=== PATIENT | male | born 1945 | race Caucasian/White ===

== ENCOUNTER 2023-05-20 18:32 | Emergency (ER) | payer MEDICARE ==
[2023-05-20 19:31] VITALS: TEMP 97.5
[2023-05-20 20:10] LABS: Basophils % (A) 0 %; Eosinophils # (A) 0.2 k/uL (0-0.7); Eosinophils % (A) 1 %; HCT 46.2 % (39.0-53.0); HGB 15.3 gm/dL (13.0-17.5); Lymphocytes # (A) 0.8 k/uL (1.0-4.8); Lymphocytes % (A) 5 %; MCHC 33.1 g/dL (31.0-37.0); MCV 96.7 fL (80.0-100.0); Monocytes # (A) 0.8 k/uL (0-1.0); Monocytes % (A) 6 %; Neutrophils % (A) 87 %; Platelet Count 132 k/uL (150-450); RBC 4.78 m/uL (4.30-5.90); RDW 12.7 % (11.5-15.5); WBC 14.9 k/uL (3.8-10.6)
--- NOTE | 2023-05-20 20:33 | XR ---
EXAMINATION TYPE: XR chest 2V DATE OF EXAM: 05/20/2023 COMPARISON: NONE HISTORY: Syncope and weakness TECHNIQUE: Frontal and lateral views of the chest are obtained. FINDINGS: There is no focal air space opacity, pleural effusion, or pneumothorax seen. The cardiac silhouette size is upper limits of normal. Exaggerated thoracic kyphosis is seen. Overlying EKG leads are noted. IMPRESSION: No acute process.
[2023-05-20 20:38] LABS: ALT 20 U/L (4-49); AST 52 U/L (17-59); African American GFR (CKD) 56 (>60 ml/min/1.73 sqM); Albumin 4.9 g/dL (3.5-5.0); Alkaline Phosphatase 73 U/L (38-126); Anion Gap 15 mmol/L; Blood Urea Nitrogen 29 mg/dL (9-20); Calcium 9.4 mg/dL (8.4-10.2); Carbon Dioxide 18 mmol/L (22-30); Chloride 103 mmol/L (98-107); Glucose 108 mg/dL (74-99); Magnesium 2.1 mg/dL (1.6-2.3); Non-African American GFR(CKD) 48 (>60 ml/min/1.73 sqM); Sodium 136 mmol/L (137-145); Total Bilirubin 1.2 mg/dL (0.2-1.3); Total Protein 8.4 g/dL (6.3-8.2)
[2023-05-20 21:03] LABS: Potassium 5.1 mmol/L (3.5-5.1)
--- NOTE | 2023-05-20 21:04 | ED ---
Dizziness HPI - General Source: patient Mode of arrival: EMS - History of Present Illness MD Complaint: dizziness, other (Couple episodes) -: minutes(s) Timing: sudden onset History of Same: No History of Trauma: No Worsens With: nothing Associated Symptoms: syncope <Giancarlo Davis - Last Filed: 05/20/23 21:34> <Moises Miller - Last Filed: 05/21/23 02:29> - General Chief Complaint: Syncope Stated Complaint: Abd Pain,Syncope Time Seen by Provider: 05/20/23 18:47 - History of Present Illness Initial Comments: This patient is a 78-year-old man who presents to have evaluation for syncopal episode. 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 The patient reports that he had been having some lower abdominal crampy pain that was intermittent going on for the afternoon. He was driving home when he stopped and then states she must loss consciousness. He did have a feeling of dizziness. Patient was brought here to have evaluation. Shortly after arrival he states that he had large bowel movement and the lower abdominal pains have resolved. He states that now he feels well. The patient did not note any chest pain, palpitations, diaphoresis or dyspnea. (Giancarlo Davis) - Related Data Home Medications Medication Instructions Recorded Confirmed Apixaban [Eliquis] 5 mg PO BID 05/20/23 05/20/23 Diltiazem Cd [Cardizem CD] 180 mg PO BID@0900,1700 05/20/23 05/20/23 Lansoprazole 30 mg PO DAILY 05/20/23 05/20/23 Potassium Chloride [Klor-Con 10 ER] 10 meq PO DAILY 05/20/23 05/20/23 Pravastatin Sodium [Pravachol] 40 mg PO HS 05/20/23 05/20/23 hydroCHLOROthiazide 12.5 mg PO DAILY 05/20/23 05/20/23 lisinopriL [Prinivil] 20 mg PO DAILY 05/20/23 05/20/23 Previous Rx's Medication Instructions Recorded Amoxic-Pot Clav 875-125Mg 1 tab PO Q12HR 10 Days #20 tab 05/21/23 [Augmentin 875-125] Allergies Allergy/AdvReac Type Severity Reaction Status Date / Time No Known Allergies Allergy Verified 05/20/23 22:11 Review of Systems ROS Other: All systems not noted in ROS Statement are negative. Constitutional: Denies: fever, chills Respiratory: Denies: cough, dyspnea Cardiovascular: Reports: as per HPI, syncope. Denies: chest pain, palpitations, edema Gastrointestinal: Reports: as per HPI, abdominal pain. Denies: nausea, vomiting, diarrhea, constipation Genitourinary: Denies: dysuria, hematuria Musculoskeletal: Denies: back pain Skin: Denies: rash Neurological: Denies: headache, weakness, numbness <Giancarlo Davis - Last Filed: 05/20/23 21:34> ROS Other: All systems not noted in ROS Statement are negative. <MadanhoracioMoises Juan José - Last Filed: 05/21/23 02:29> ROS Statement: Those systems with pertinent positive or pertinent negative responses have been documented in the HPI. Past Medical History Past Medical History: Atrial Fibrillation, Hypertension History of Any Multi-Drug Resistant Organisms: None Reported Past Surgical History: No Surgical Hx Reported Smoking Status: Never smoker Past Alcohol Use History: None Reported Past Drug Use History: None Reported <Giancarlo Davis - Last Filed: 05/20/23 21:34> General Exam General appearance: alert, in no apparent distress Head exam: Present: atraumatic, normocephalic Eye exam: Present: normal appearance. Absent: scleral icterus, conjunctival injection Neck exam: Present: normal inspection, full ROM Respiratory exam: Present: normal lung sounds bilaterally. Absent: respiratory distress, wheezes, rales, rhonchi, stridor Cardiovascular Exam: Present: regular rate, normal rhythm, normal heart sounds. Absent: systolic murmur, diastolic murmur, rubs, gallop GI/Abdominal exam: Present: soft. Absent: distended, tenderness, guarding, rebound, rigid, mass Extremities exam: Present: normal inspection, normal capillary refill. Absent: pedal edema, calf tenderness Back exam: Present: normal inspection. Absent: CVA tenderness (R), CVA tenderness (L) Neurological exam: Present: alert, oriented X3, CN II-XII intact. Absent: motor sensory deficit Skin exam: Present: warm, dry, intact, normal color. Absent: rash <Giancarlo Davis - Last Filed: 05/20/23 21:34> Course Vital Signs 05/20/23 05/21/23 19:08 02:22 Temperature 97.5 F L Pulse Rate 64 112 H Respiratory 19 17 Rate Blood Pressure 113/68 140/79 O2 Sat by Pulse 100 97 Oximetry EKG Findings - EKG Comments: EKG Findings:: Possible old septal infarct. - EKG Results: EKG: interpreted by ERMD EKG shows: atrial fibrillation (Rate 82 bpm) - Blocks, Dale, Hypertrophy, ST Abn: AV and intraventricular conduction: right bundle branch block (fixed/in termittent, complete/incomplete) (Possible right ventricular conduction delay) <Giancarlo Davis - Last Filed: 05/20/23 21:34> Medical Decision Making - Lab Data Result diagrams: 05/20/23 19:47 05/20/23 19:47 <Giancarlo Davis - Last Filed: 05/20/23 21:34> - Lab Data Result diagrams: 05/20/23 19:47 05/20/23 19:47 <Moises Miller - Last Filed: 05/21/23 02:29> - Medical Decision Making The patient had chest x-ray which I interpreted as negative for acute infiltrate, congestive heart failure, pneumothorax Patient is 78-year-old man here to have evaluation of her syncopal episode at stoplight. He did not fall there was no injury. The patient's had been having abdominal pain but that resolved after bowel movement here. The patient's workup largely unremarkable, and he was feeling better but concerned about the low abdominal pain which she had had intermittently going back for months now. The patient is pending computed tomography scan of the abdomen and then anticipates going home if that is not revealing of surgical problem. Was pt. sent in by a medical professional or institution (, PA, COLD ROLLING MACHINE SETTER, urgent care, hospital, or senior living...) When possible be specific @ -[No] Did you speak to anyone other than the patient for history (EMS, parent, family, police, friend...)? What history was obtained from this source @ -[Patient's contributes to history Did you review nursing and triage notes (agree or disagree)? Why? @ -[I reviewed and agree with nursing and triage notes] Were old charts reviewed (outside hosp., previous admission, EMS record, old EKG, old radiological studies, urgent care reports/EKG's, senior living records)? Report findings @ -[No old charts were reviewed] Differential Diagnosis (chest pain, altered mental status, abdominal pain women, abdominal pain men, vaginal bleeding, weakness, fever, dyspnea, syncope, headache, dizziness, GI bleed, back pain, seizure, CVA, palpatations, mental health, musculoskeletal)? @ -[Differential Syncope: Valvular disease, hypertrophic cardiomyopathy, pulmonary embolism, tamponade, tachycardia, bradycardia, VA, hypovolemia, hemorrhage, dissection, anemia, intracranial hemorrhage, seizure, hypoglycemia, carbon monoxide poisoning, this is not meant to be an all-inclusive list. EKG interpreted by me (3pts min.). @ -[I interpreted as above X-rays interpreted by me (1pt min.). @ -[I interpreted as above CT interpreted by me (1pt min.). @ -[Computed tomography scan pending at sign out U/S interpreted by me (1pt. min.). @ -[None done] What testing was considered but not performed or refused? (CT, X-rays, U/S, labs)? Why? @ -[None] What meds were considered but not given or refused? Why? @ -[None] Did you discuss the management of the patient with other professionals (professionals i.e. , PA, COLD ROLLING MACHINE SETTER, lab, RT, psych nurse, mental health social worker, forklift wheel loader, teacher, medical laboratory technical officer, family preservation caseworker)? Give summary @ -[No] Was smoking cessation discussed for >3mins.? @ -[No] Was critical care preformed (if so, how long)? @ -[No] Were there social determinants of health that impacted care today? How? (Homelessness, low income, unemployed, alcoholism, drug addiction, transportation, low edu. Level, literacy, decrease access to med. care, [facility] [facility], rehab)? @ -[No] Was there de-escalation of care discussed even if they declined (Discuss DNR or withdrawal of care, Hospice)? DNR status @ -[No] What co-morbidities impacted this encounter? (DM, HTN, Smoking, COPD, CAD, Cancer, CVA, ARF, Chemo, Hep., AIDS, mental health diagnosis, sleep apnea, morbid obesity)? @ -[None] Was patient admitted / discharged? Hospital course, mention meds given and route, prescriptions, significant lab abnormalities, going to OR and other pertinent info. @ -[As above, pending studies at sign out (Giancarlo Davis) Patient care was signed out awaiting computed tomography scan, laboratory testing and reevaluation. Patient had syncopal episode associated with lower abdominal pain. CT the abdomen does show an acute diverticulitis likely the cause of this pain. Patient is a rate controlled atrial fibrillation. He had mild leukocytosis, otherwise normal lab testing with the exception of an elevated d-dimer. Given the elevated d-dimer and the syncope. I did perform CT angiography of the chest which was negative for pulmonary embolism. Patient was observed in the emergency department for approximately 8 hours. He was stable throughout this time and was eager for discharge. He wants to try oral antibiotics for diverticulitis. Will follow closely with his primary care physician and strict return parameters were discussed. (Moises Miller) - Lab Data Lab Results 05/20/23 05/20/23 05/20/23 Range/Units 19:47 19:47 19:47 WBC 14.9 H (3.8-10.6) k/uL RBC 4.78 (4.30-5.90) m/uL Hgb 15.3 (13.0-17.5) gm/dL Hct 46.2 (39.0-53.0) % MCV 96.7 (80.0-100.0) fL MCH 32.0 (25.0-35.0) pg MCHC 33.1 (31.0-37.0) g/dL RDW 12.7 (11.5-15.5) % Plt Count 132 L (150-450) k/uL MPV 8.0 Neutrophils % 87 % Lymphocytes % 5 % Monocytes % 6 % Eosinophils % 1 % Basophils % 0 % Neutrophils # 13.0 H (1.3-7.7) k/uL Lymphocytes # 0.8 L (1.0-4.8) k/uL Monocytes # 0.8 (0-1.0) k/uL Eosinophils # 0.2 (0-0.7) k/uL Basophils # 0.0 (0-0.2) k/uL PT (10.0-12.5) sec INR (<1.2) APTT (22.0-30.0) sec D-Dimer (<0.60) mg/L FEU Sodium 136 L (137-145) mmol/L Potassium 5.1 (3.5-5.1) mmol/L Chloride 103 (98-107) mmol/L Carbon Dioxide 18 L (22-30) mmol/L Anion Gap 15 mmol/L BUN 29 H (9-20) mg/dL Creatinine 1.39 H (0.66-1.25) mg/dL Est GFR (CKD-EPI)AfAm 56 (>60 ml/min/1.73 sqM) Est GFR (CKD-EPI)NonAf 48 (>60 ml/min/1.73 sqM) Glucose 108 H (74-99) mg/dL Calcium 9.4 (8.4-10.2) mg/dL Magnesium 2.1 (1.6-2.3) mg/dL Total Bilirubin 1.2 (0.2-1.3) mg/dL AST 52 (17-59) U/L ALT 20 (4-49) U/L Alkaline Phosphatase 73 (38-126) U/L Troponin I 0.016 (0.000-0.034) ng/mL Total Protein 8.4 H (6.3-8.2) g/dL Albumin 4.9 (3.5-5.0) g/dL Urine Color Urine Appearance (Clear) Urine pH (5.0-8.0) Ur Specific [place] (1.001-1.035) Urine Protein (Negative) Urine Glucose (UA) (Negative) Urine Ketones (Negative) Urine Blood (Negative) Urine Nitrite (Negative) Urine Bilirubin (Negative) Urine Urobilinogen (<2.0) mg/dL Ur Leukocyte Esterase (Negative) Urine RBC (0-5) /hpf Hyaline Casts (0-2) /lpf Urine Mucus (None) /hpf 05/20/23 05/21/23 Range/Units 21:53 00:53 WBC (3.8-10.6) k/uL RBC (4.30-5.90) m/uL Hgb (13.0-17.5) gm/dL Hct (39.0-53.0) % MCV (80.0-100.0) fL MCH (25.0-35.0) pg MCHC (31.0-37.0) g/dL RDW (11.5-15.5) % Plt Count (150-450) k/uL MPV Neutrophils % % Lymphocytes % % Monocytes % % Eosinophils % % Basophils % % Neutrophils # (1.3-7.7) k/uL Lymphocytes # (1.0-4.8) k/uL Monocytes # (0-1.0) k/uL Eosinophils # (0-0.7) k/uL Basophils # (0-0.2) k/uL PT 12.0 (10.0-12.5) sec INR 1.1 (<1.2) APTT 24.7 (22.0-30.0) sec D-Dimer 11.81 H (<0.60) mg/L FEU Sodium (137-145) mmol/L Potassium (3.5-5.1) mmol/L Chloride (98-107) mmol/L Carbon Dioxide (22-30) mmol/L Anion Gap mmol/L BUN (9-20) mg/dL Creatinine (0.66-1.25) mg/dL Est GFR (CKD-EPI)AfAm (>60 ml/min/1.73 sqM) Est GFR (CKD-EPI)NonAf (>60 ml/min/1.73 sqM) Glucose (74-99) mg/dL Calcium (8.4-10.2) mg/dL Magnesium (1.6-2.3) mg/dL Total Bilirubin (0.2-1.3) mg/dL AST (17-59) U/L ALT (4-49) U/L Alkaline Phosphatase (38-126) U/L Troponin I (0.000-0.034) ng/mL Total Protein (6.3-8.2) g/dL Albumin (3.5-5.0) g/dL Urine Color Yellow Urine Appearance Clear (Clear) Urine pH 5.0 (5.0-8.0) Ur Specific [place] 1.015 (1.001-1.035) Urine Protein Trace (Negative) Urine Glucose (UA) Negative (Negative) Urine Ketones Negative (Negative) Urine Blood Trace (Negative) Urine Nitrite Negative (Negative) Urine Bilirubin Negative (Negative) Urine Urobilinogen <2.0 (<2.0) mg/dL Ur Leukocyte Esterase Negative (Negative) Urine RBC 2 (0-5) /hpf Hyaline Casts 1 (0-2) /lpf Urine Mucus Rare H (None) /hpf Disposition <Giancarlo Davis - Last Filed: 05/20/23 21:34> Is patient prescribed a controlled substance at d/c from ED?: No Time of Disposition: 02:11 <Moises Miller - Last Filed: 05/21/23 02:29> Clinical Impression: Syncope, Acute diverticulitis Disposition: HOME SELF-CARE Condition: Fair Instructions (If sedation given, give patient instructions): Diverticulitis (ED), Syncope (ED) Prescriptions: Amoxic-Pot Clav 875-125Mg [Augmentin 875-125] 1 tab PO Q12HR 10 Days #20 tab Referrals: Nonstaff,Physician [Primary Care Provider] - 1-2 days
[2023-05-20] MEDS ORDERED: SODIUM CHLORIDE 0.9% 1,000 ML IV ONE (21:31)
--- NOTE | 2023-05-20 21:51 | CT ---
EXAMINATION TYPE: CT abdomen pelvis wo con DATE OF EXAM: 05/20/2023 HISTORY: RLQ PAIN AND ABDOMINAL CRAMPING. CT DLP: 441.1 mGycm. Automated Exposure Control for Dose Reduction was Utilized. TECHNIQUE: CT scan of the abdomen and pelvis is performed without oral or IV contrast. COMPARISON: NONE FINDINGS: Within the limitations of a non-contrast study, the following observations are made. LUNG BASES: Moderate biatrial dilatation. Three-vessel coronary artery calcification and/or stents ar e present. LIVER/GB: Gallbladder has dependent densities suggesting small stones and/or sludge. Trace ascites ar ound the anterior liver is seen PANCREAS: No significant abnormality is seen. SPLEEN: No significant abnormality is seen. ADRENALS: Low dense thickening to both adrenal glands favors benign lipid rich hyperplasia. KIDNEYS: No renal calculus or hydronephrosis is seen bilaterally. No intraluminal calculus in the stephanie dder. Mild wall thickening up to 8 mm. BOWEL: Suboptimal evaluation of bowel without enteric contrast. No abnormal small or large bowel dila tation is clearly seen. Appendix felt within normal limits from base of cecum. Prominent sigmoid colo dontrell diverticulosis is present difficult to exclude acute diverticulitis with mild fat stranding throu ghout the pelvis identified. No free air is seen. No well-formed fluid collection or abscess clearly identified. Some limitation on a noncontrast study. GENITAL ORGANS: Prostate gland upper limits of normal in size. LYMPH NODES: No greater than 1cm abdominal or pelvic lymph nodes are appreciated. OSSEOUS STRUCTURES: Multilevel spondylolisthesis in the upper to mid lumbar spine. Mild multilevel di sc space narrowing. Prominent facet arthropathy lower lumbar levels. OTHER: Surgical clips from right inguinal hernia repair surgery are present. Mild to moderate calcifi ed plaque of the aorta extends into branch vessels. IMPRESSION: 1. No renal stones or hydronephrosis is seen bilaterally. Mild wall thickening in the urinary bladder . Correlate clinically and with urine lab values to exclude acute bladder infection. 2. Prominent sigmoid colonic diverticulosis with suspicion for mild uncomplicated acute diverticuliti s. Correlate clinically.
[2023-05-20 23:02] LABS: INR 1.1 (<1.2); Partial Thromboplastin Time 24.7 sec (22.0-30.0)
[2023-05-20] MEDS ORDERED: AMOXIC-POT CLAV 875-125MG 1 EACH TAB PO STA (23:02)
[2023-05-21 01:47] LABS: Appearance,Urine Clear (Clear); Color,Urine Yellow; Protein,Urine Trace (Negative); Specific Gravity,Urine 1.015 (1.001-1.035)
[2023-05-21 01:48] LABS: Bilirubin,Urine Negative (Negative); Blood,Urine Trace (Negative); Glucose,Urine (UA) Negative (Negative); Ketones,Urine Negative (Negative); Leukocyte Esterase,Urine Negative (Negative); Nitrite,Urine Negative (Negative); Urobilinogen,Urine <2.0 mg/dL (<2.0)
[2023-05-21 01:53] LABS: Hyaline Casts,Urine 1 /lpf (0-2); Mucus,Urine Rare /hpf; RBC,Urine 2 /hpf (0-5)
--- NOTE | 2023-05-21 01:55 | CT ---
EXAM: CT Angiography Chest With Intravenous Contrast CLINICAL HISTORY: ITS.REASON CT Reason: syncope/pos dimer TECHNIQUE: Axial computed tomographic angiography images of the chest with intravenous contrast. CTDI is 13.9 mGy and DLP is 273.9 mGy-cm. This CT exam was performed using one or more of the following dose reduction techniques: automated exposure control, adjustment of the mA and/or kV according to patient size, and/or use of iterative reconstruction technique. MIP reconstructed images were created and reviewed. COMPARISON: Chest x-ray study of 05/20/2023. FINDINGS: Pulmonary arteries: Central pulmonary arteries are unremarkable. Peripheral branches the pulmonary arteries are unremarkable. Aorta: Atherosclerotic disease of the thoracic aorta. No thoracic aortic aneurysm. Lungs: Mild COPD. The airway is normal. Minimal scarring and subsegmental atelectasis posteriorly in the mid lower lung zones. No mass. Pleural space: Unremarkable. No significant effusion. No pneumothorax. Heart: Heart is top normal in size. No significant pericardial effusion. No evidence of RV dysfunction. Bones/joints: No acute fracture. No dislocation. Soft tissues: Unremarkable. Lymph nodes: Unremarkable. No enlarged lymph nodes. IMPRESSION: No central or peripheral pulmonary emboli.
[2023-05-21 02:30] VITALS: BP 140/79; PULSE 112; RESP 17
== END 2023-05-21 02:30 | disposition home or self-care (01) ==
LOC: EC 18:32
DX: K57.32 Diverticulitis of large intestine without perforation or abscess without bleeding (principal); R55 Syncope and collapse; R79.1 Abnormal coagulation profile; I45.10 Unspecified right bundle-branch block; I48.91 Unspecified atrial fibrillation; I10 Essential (primary) hypertension; Z79.01 Long term (current) use of anticoagulants; Z79.899 Other long term (current) drug therapy
CPT/HCPCS: 36415; 93005; 85379; 80053; 83735; 84484; 85025; 85610; 85730; 81001; 71046; 71275; 74176; 99285; 96360; Q9967

== ENCOUNTER 2023-06-24 07:46 | Day surgery (SDC) | payer MEDICARE ==
[2023-06-22 15:44] VITALS: BMI 21.8
[~2023-06-24 07:46] MED LIST: LACTATED RINGERS 1,000 ML IV SCH; LIDOCAINE 1% (10MG/ML) FOR IV START INTRADERMA PRN
[2023-06-24 08:59] VITALS: TEMP 98
[2023-06-24] MEDS ORDERED: PROPOFOL 10 MG/ML 20 ML VIAL IV ONE (09:09)
--- NOTE | 2023-06-24 09:54 | P.PCN ---
Date of Procedure: 06/24/23 Procedure(s) Performed: Brief history: Patient is a pleasant 78-year-old white male scheduled for an elective upper endoscopy as well as colonoscopy as a part of evaluation of lungs any history of GERD and prior history of colon polyps. Procedure performed: Esophagogastroduodenoscopy with biopsy Colonoscopy with snare polypectomy. Preoperative diagnosis: Long-standing history of GERD History of colon polyps Anesthesia: MAC Procedure: After informed consent was obtained from the patient was brought into the endoscopy unit and IV sedation was administered by anesthesia under continuous monitoring. Initially upper endoscopy was done. The Olympus GF 160 video endoscope was inserted inserted into the mouth and esophagus intubated without any difficulty and was gradually advanced into the stomach and duodenum and carefully examined. The bulb and second part of the duodenum appeared normal. The scope was then withdrawn into the stomach adequately insufflated with air and upon careful examination the antrum had patchy areas of erythema consistent with gastritis and biopsies were done from this area. Mucosa of the body, cardia and fundus appeared normal. The scope was thenthere was a short segment of Jo's esophagus extending 5-6 mm proximal to the GE junction which was biopsied. Rest of the esophagus appeared normal. Patient tolerated the procedure well. At this time the patient continued to remain sedation. Initial digital rectal examination was normal. Olympus CF 160 video colonoscope was then inserted into the rectum and gradually advanced to the cecum without any difficulty. Careful examination was performed as the scope was gradually being withdrawn. The prep was excellent. There was a 1 cm flat polyp noted on the ileocecal valve that was removed byl snare polypectomy. Rest of the cecum, ascending colon, transverse colon, descending colon, sigmoid colon and rectum appeared normal. Scattered sigmoidal diverticulosis Retroflexion was performed in the rectum and no lesions were noted. Patient tolerated the procedure well. Impression: 1. Upper endoscopy revealed small hiatal hernia, short segment Jo's esophagus and mild antral gastritis 2. Colonoscopy revealed 1 cm flat polyp on the ileocecal valve status post polypectomy and scattered sigmoid diverticulosis Recommendations: Findings of this examination were discussed with the patient as well as his family. He was he was advised to follow with the biopsy results. If the biopsy confirms the presence of Jo's esophagus he can have a repeat upper endoscopy in 3 years. In the meantime he will continue withlansoprazole 30mg daily and follow antireflux measures. with the biopsy reveals adenoma he can have a repeat colonoscopy in 3 years.
[2023-06-24 10:22] VITALS: BP 113/68; PULSE 71; RESP 18
== END 2023-06-24 10:30 | disposition home or self-care (01) ==
LOC: ORWHC2ENDO 07:46
PROVIDERS: ATTEND Internal Medicine Gastroenterology
DX: Z12.11 Encounter for screening for malignant neoplasm of colon (principal); K29.50 Unspecified chronic gastritis without bleeding; D12.0 Benign neoplasm of cecum; K22.70 Barrett's esophagus without dysplasia; K57.30 Diverticulosis of large intestine without perforation or abscess without bleeding; K21.9 Gastro-esophageal reflux disease without esophagitis; Z86.010 Personal history of colon polyps; I48.91 Unspecified atrial fibrillation; I10 Essential (primary) hypertension; E78.5 Hyperlipidemia, unspecified; F17.200 Nicotine dependence, unspecified, uncomplicated; Z79.01 Long term (current) use of anticoagulants; Z79.899 Other long term (current) drug therapy
CPT/HCPCS: 88305; 45385; 43239; J2704

== ENCOUNTER 2024-01-11 20:28 | Emergency (ER) | payer MEDICARE ==
[2024-01-11 20:48] VITALS: TEMP 97.7
--- NOTE | 2024-01-11 21:48 | ED ---
Abdominal Pain HPI <Home Bryan - Last Filed: 01/12/24 02:39> - General Source: patient, RN notes reviewed, old records reviewed Mode of arrival: ambulatory Limitations: no limitations - History of Present Illness MD Complaint: abdominal pain, other (Near syncope with diaphoresis) -: hour(s) Radiation: none Migration to: epigastric, suprapubic Severity: moderate Severity scale (1-10): 6 Quality: fullness, sharp Improves With: nothing Worsens With: nothing Associated Symptoms: nausea, vomiting, syncope Treatments Prior to Arrival: antacids <Simba Wilson - Last Filed: 01/21/24 20:36> - General Chief Complaint: Nausea/Vomiting/Diarrhea Stated Complaint: severe abdominal pain Time Seen by Provider: 01/11/24 20:58 - History of Present Illness Initial Comments: This is a 78-year-old male to the ER he presents today for evaluation regards to syncopal events from abdominal pain severe abdominal pain here in the ER which has been related to prior diverticulitis. Patient had multiple near syncopal events at home at work and then again at home and brings patient to the ER for evaluation, patient has no current pain chest pain or abdominal pain but states he was very diaphoretic during this near syncopal event prior to coming to the hospital. (Simba Wilson) - Related Data Home Medications Medication Instructions Recorded Confirmed Apixaban [Eliquis] 5 mg PO BID 05/20/23 06/22/23 Diltiazem Cd [Cardizem CD] 180 mg PO BID@0900,1600 05/20/23 06/24/23 Lansoprazole 30 mg PO DAILY 05/20/23 06/24/23 Potassium Chloride [Klor-Con 10 ER] 10 meq PO DAILY 05/20/23 06/22/23 Pravastatin Sodium [Pravachol] 40 mg PO HS 05/20/23 06/22/23 hydroCHLOROthiazide 12.5 mg PO DAILY 05/20/23 06/22/23 lisinopriL [Prinivil] 20 mg PO QAM 05/20/23 06/24/23 Iron (Unknown Dose) 1 tab PO DAILY 06/22/23 06/22/23 Vitamin D (Unknown Dose) 1 tab PO DAILY 06/22/23 06/24/23 Allergies Allergy/AdvReac Type Severity Reaction Status Date / Time No Known Allergies Allergy Verified 06/22/23 14:40 Review of Systems ROS Other: All systems not noted in ROS Statement are negative. <Home Bryan - Last Filed: 01/12/24 02:39> ROS Other: All systems not noted in ROS Statement are negative. <Simba Wilson - Last Filed: 01/21/24 20:36> ROS Statement: Those systems with pertinent positive or pertinent negative responses have been documented in the HPI. Past Medical History Past Medical History: Atrial Fibrillation, GERD/Reflux, Hearing Disorder / Deafness, Hypertension, Osteoarthritis (OA) Additional Past Medical History / Comment(s): Recent UTI, treated and resolved now. Recent episode of lower abd pain, diverticulitis, dizziness and syncope 05/20/23, Low Iron, low Vitamin D. Hard of hearing, has hearing aids, but does not use them. History of Any Multi-Drug Resistant Organisms: None Reported Past Surgical History: Hernia Repair Additional Past Surgical History / Comment(s): Colonoscopy. Past Anesthesia/Blood Transfusion Reactions: No Reported Reaction Additional Past Anesthesia/Blood Transfusion Reaction / Comment(s): Spouse states may have had problem with hernia repair, cannot recall, it was about 50 yrs ago. Past Psychological History: No Psychological Hx Reported Smoking Status: Never smoker Past Alcohol Use History: None Reported Past Drug Use History: None Reported - Past Family History Mother Family Medical History: No Reported History <Simba Wilson - Last Filed: 01/21/24 20:36> General Exam Limitations: no limitations General appearance: alert, in no apparent distress, anxious Head exam: Present: atraumatic, normocephalic, normal inspection Eye exam: Present: normal appearance, PERRL, EOMI. Absent: scleral icterus, conjunctival injection, periorbital swelling ENT exam: Present: normal exam, mucous membranes moist Neck exam: Present: normal inspection. Absent: tenderness, meningismus, lymphadenopathy Respiratory exam: Present: normal lung sounds bilaterally. Absent: respiratory distress, wheezes, rales, rhonchi, stridor Cardiovascular Exam: Present: normal rhythm, bradycardia, normal heart sounds. Absent: systolic murmur, diastolic murmur, rubs, gallop, clicks GI/Abdominal exam: Present: soft, normal bowel sounds. Absent: distended, tenderness, guarding, rebound, rigid Extremities exam: Present: normal inspection, full ROM, normal capillary refill. Absent: tenderness, pedal edema, joint swelling, calf tenderness Back exam: Present: normal inspection Neurological exam: Present: alert, oriented X3, CN II-XII intact Psychiatric exam: Present: normal affect, normal mood Skin exam: Present: warm, dry, intact, normal color. Absent: rash <Simba Wilson - Last Filed: 01/21/24 20:36> Course <Simba Wilson - Last Filed: 01/21/24 20:36> Vital Signs 01/11/24 01/11/24 01/11/24 20:41 22:59 23:20 Temperature 97.7 F Pulse Rate 43 L 114 H 110 H Respiratory 18 16 16 Rate Blood Pressure 87/61 132/84 123/92 O2 Sat by Pulse 98 100 100 Oximetry 01/12/24 01/12/24 01:00 02:30 Temperature Pulse Rate 102 H 98 Respiratory 16 16 Rate Blood Pressure 136/85 126/87 O2 Sat by Pulse 100 99 Oximetry - Reevaluation(s) Reevaluation #1: 01/11/24 22:52 Medical records reviewed (Simba Wilson) Reevaluation #2: 01/11/24 22:52 Patient resting comfortably without complaint (Simba Wilson) Reevaluation #3: Patient symptoms improved here in the ER Patient informed of results and questions answered (Simba Wilson) Reevaluation #4: Was pt. sent in by a medical professional or institution (, PA, MATERIAL DAMAGE ADJUSTER, urgent care, hospital, or alf...) When possible be specific @ -no Did you speak to anyone other than the patient for history (EMS, parent, family, police, friend...)? What history was obtained from this source @ -no Did you review nursing and triage notes (agree or disagree)? Why? @ -agree Are old charts reviewed (outside hosp., previous admission, EMS record, old EKG, old radiological studies, urgent care reports/EKG's, alf records)? Report findings @ -yes Differential Diagnosis (chest pain, altered mental status, abdominal pain women, abdominal pain men, vaginal bleeding, weakness, fever, dyspnea, syncope, headache, dizziness, GI bleed, back pain, seizure, CVA, palpatations, mental health, musculoskeletal)? @ -prior EKG interpreted by me (3pts min.). @ -yes X-rays interpreted by me (1pt min.). @ -dc CT interpreted by me (1pt min.). @ -yes negative for acute disease U/S interpreted by me (1pt. min.). @ -no What testing was considered but not performed or refused? (CT, X-rays, U/S, labs)? Why? @ -none What meds were considered but not given or refused? Why? @ -none Did you discuss the management of the patient with other professionals (professionals i.e. , PA, MATERIAL DAMAGE ADJUSTER, lab, RT, psych nurse, social insurance adviser, wiper blender, teacher, airline pilot/first officer, pillowcase turner)? Give summary @ -no Was smoking cessation discussed for >3mins.? @ -no Was critical care preformed (if so, how long)? @ -no Were there social determinants of health that impacted care today? How? (Homelessness, low income, unemployed, alcoholism, drug addiction, transportation, low edu. Level, literacy, decrease access to med. care, usp, rehab)? @ -none Was there de-escalation of care discussed even if they declined (Discuss DNR or withdrawal of care, Hospice)? DNR status @ -no What co-morbidities impacted this encounter? (DM, HTN, Smoking, COPD, CAD, Cancer, CVA, ARF, Chemo, Hep., AIDS, mental health diagnosis, sleep apnea, morbid obesity)? @ -none Was patient admitted / discharged? Hospital course, mention meds given and route, prescriptions, significant lab abnormalities, going to OR and other pertinent info. @ -78 male to the ER for evaluation patient will be discharged home significant for colitis Undiagnosed new problem with uncertain prognosis? @ -no Drug Therapy requiring intensive monitoring for toxicity (Heparin, Nitro, Insulin, Cardizem)? @ -no Were any procedures done? @ -no Diagnosis/symptom? @ -Colitis Acute, or Chronic, or Acute on Chronic? @ -Acute Uncomplicated (without systemic symptoms) or Complicated (systemic symptoms)? @ -Complicated Side effects of treatment? @ -no Exacerbation, Progression, or Severe Exacerbation? @ -exacerbation Poses a threat to patient's life yes extremes of age (Simba Wilson) Reevaluation #5: Differential Syncope: Valvular disease, hypertrophic cardiomyopathy, pulmonary embolism, tamponade, tachycardia, bradycardia, [place], hypovolemia, hemorrhage, dissection, anemia, intracranial hemorrhage, seizure, hypoglycemia, carbon monoxide poisoning, this is not meant to be an all-inclusive list. Differential Abdominal Pain Men: Appendicitis, cholecystitis, diverticulosis, ischemic bowel, pancreatitis, hepatitis, UTI, gastroenteritis, AAA, incarcerated hernia, bowel obstruction, constipation, inflammatory bowel, hepatitis, peptic ulcer disease, splenic infarction, perforated viscus, testicular torsion, this is not meant to be an all-inclusive list (Simba Wilson) Medical Decision Making - Lab Data Result diagrams: 01/11/24 22:11 01/11/24 22:11 <Home Bryan - Last Filed: 01/12/24 02:39> - Lab Data Result diagrams: 01/11/24 22:11 01/11/24 22:11 - EKG Data -: EKG Interpreted by Me (EKG is afib 111 QRS 92 QTc 381) - Radiology Data Radiology results: report reviewed (CTA chest CT abdomen pelvis negative for acute disease), image reviewed <Simba Wilson - Last Filed: 01/21/24 20:36> - Medical Decision Making Presented to me by previous shift physician, Dr. Miller,. Plan at signout was to follow-up with pending imaging studies. CT of the abdomen pelvis shows mild colitis. Otherwise no acute findings seen and CT abdomen pelvis and CT angio chest. Patient evaluated bedside at 2:43 AM found to be stable medical addition. wants to take patient home. Patient states he feels fine. Patient denies any cardiomyopathy. They were offered observation admission purely for the fact that it sounded like patient had a presyncopal episode. They refused and would prefer to be discharged to follow-up closely with primary care doctor. (Home Bryan) 78 male to the ER for evaluation abdominal pain. Patient has severe abdominal pain here in the ER with no acute findings, mild colitis, patient will be discharged home (Simba Wilson) - Lab Data Lab Results 01/11/24 01/11/24 01/11/24 Range/Units 22:11 22:11 22:11 WBC 17.2 H (3.8-10.6) k/uL RBC 4.40 (4.30-5.90) m/uL Hgb 14.0 (13.0-17.5) gm/dL Hct 43.4 (39.0-53.0) % MCV 98.6 (80.0-100.0) fL MCH 31.8 (25.0-35.0) pg MCHC 32.2 (31.0-37.0) g/dL RDW 12.9 (11.5-15.5) % Plt Count 244 (150-450) k/uL MPV 7.1 Neutrophils % 91 % Lymphocytes % 2 % Monocytes % 5 % Eosinophils % 0 % Basophils % 0 % Neutrophils # 15.8 H (1.3-7.7) k/uL Lymphocytes # 0.3 L (1.0-4.8) k/uL Monocytes # 0.9 (0-1.0) k/uL Eosinophils # 0.0 (0-0.7) k/uL Basophils # 0.0 (0-0.2) k/uL PT 11.7 (10.0-12.5) sec INR 1.1 (<1.2) APTT 23.5 (22.0-30.0) sec Sodium 135 L (137-145) mmol/L Potassium 4.1 (3.5-5.1) mmol/L Chloride 105 (98-107) mmol/L Carbon Dioxide 21 L (22-30) mmol/L Anion Gap 9 mmol/L BUN 21 H (9-20) mg/dL Creatinine 1.56 H (0.66-1.25) mg/dL Est GFR (CKD-EPI)AfAm 48 (>60 ml/min/1.73 sqM) Est GFR (CKD-EPI)NonAf 42 (>60 ml/min/1.73 sqM) Glucose 121 H (74-99) mg/dL Plasma Lactic Acid Jose (0.7-2.0) mmol/L Calcium 9.6 (8.4-10.2) mg/dL Phosphorus 4.8 H (2.5-4.5) mg/dL Magnesium 2.2 (1.6-2.3) mg/dL Total Bilirubin 0.9 (0.2-1.3) mg/dL AST 37 (17-59) U/L ALT 21 (4-49) U/L Alkaline Phosphatase 51 (38-126) U/L Troponin I (0.000-0.034) ng/mL NT-Pro-B Natriuret Pep 2680 pg/mL Total Protein 7.3 (6.3-8.2) g/dL Albumin 4.6 (3.5-5.0) g/dL 01/11/24 01/11/24 Range/Units 22:11 22:11 WBC (3.8-10.6) k/uL RBC (4.30-5.90) m/uL Hgb (13.0-17.5) gm/dL Hct (39.0-53.0) % MCV (80.0-100.0) fL MCH (25.0-35.0) pg MCHC (31.0-37.0) g/dL RDW (11.5-15.5) % Plt Count (150-450) k/uL MPV Neutrophils % % Lymphocytes % % Monocytes % % Eosinophils % % Basophils % % Neutrophils # (1.3-7.7) k/uL Lymphocytes # (1.0-4.8) k/uL Monocytes # (0-1.0) k/uL Eosinophils # (0-0.7) k/uL Basophils # (0-0.2) k/uL PT (10.0-12.5) sec INR (<1.2) APTT (22.0-30.0) sec Sodium (137-145) mmol/L Potassium (3.5-5.1) mmol/L Chloride (98-107) mmol/L Carbon Dioxide (22-30) mmol/L Anion Gap mmol/L BUN (9-20) mg/dL Creatinine (0.66-1.25) mg/dL Est GFR (CKD-EPI)AfAm (>60 ml/min/1.73 sqM) Est GFR (CKD-EPI)NonAf (>60 ml/min/1.73 sqM) Glucose (74-99) mg/dL Plasma Lactic Acid Jose 1.2 (0.7-2.0) mmol/L Calcium (8.4-10.2) mg/dL Phosphorus (2.5-4.5) mg/dL Magnesium (1.6-2.3) mg/dL Total Bilirubin (0.2-1.3) mg/dL AST (17-59) U/L ALT (4-49) U/L Alkaline Phosphatase (38-126) U/L Troponin I 0.015 (0.000-0.034) ng/mL NT-Pro-B Natriuret Pep pg/mL Total Protein (6.3-8.2) g/dL Albumin (3.5-5.0) g/dL Disposition Is patient prescribed a controlled substance at d/c from ED?: No Time of Disposition: 02:44 <Home Bryan - Last Filed: 01/12/24 02:39> Is patient prescribed a controlled substance at d/c from ED?: No <Simba Wilson - Last Filed: 01/21/24 20:36> Clinical Impression: Abdominal pain Disposition: HOME SELF-CARE Condition: Good Instructions (If sedation given, give patient instructions): Abdominal Pain (ED) Referrals: Nonstaff,Physician [Primary Care Provider] - 1-2 days
[2024-01-11] MEDS: SODIUM CHLORIDE 0.9% 1,000 ML IV STA ×2 (22:21→22:22)
[2024-01-11] MEDS: SODIUM CHLORIDE 0.9% 500 ML 500 ML IV STA (22:23)
[2024-01-11] MEDS: ONDANSETRON 4 MG/2 ML VIAL IVP STA (22:23)
[2024-01-11] MEDS: MORPHINE SULFATE 2 MG/ML SYRINGE IVP STA (22:30)
[2024-01-11 22:49] LABS: Basophils % (A) 0 %; Eosinophils % (A) 0 %; HCT 43.4 % (39.0-53.0); Lymphocytes # (A) 0.3 k/uL (1.0-4.8); Lymphocytes % (A) 2 %; MCH 31.8 pg (25.0-35.0); MCHC 32.2 g/dL (31.0-37.0); MCV 98.6 fL (80.0-100.0); Mean Platelet Volume 7.1; Monocytes # (A) 0.9 k/uL (0-1.0); Monocytes % (A) 5 %; Neutrophils # (A) 15.8 k/uL (1.3-7.7); Neutrophils % (A) 91 %; Platelet Count 244 k/uL (150-450); RDW 12.9 % (11.5-15.5); WBC 17.2 k/uL (3.8-10.6)
[2024-01-11 22:59] LABS: INR 1.1 (<1.2); Partial Thromboplastin Time 23.5 sec (22.0-30.0); Prothrombin Time 11.7 sec (10.0-12.5)
[2024-01-11 23:01] VITALS: RESP 16
[2024-01-11 23:18] LABS: ALT 21 U/L (4-49); AST 37 U/L (17-59); African American GFR (CKD) 48 (>60 ml/min/1.73 sqM); Albumin 4.6 g/dL (3.5-5.0); Alkaline Phosphatase 51 U/L (38-126); Anion Gap 9 mmol/L; Blood Urea Nitrogen 21 mg/dL (9-20); Calcium 9.6 mg/dL (8.4-10.2); Carbon Dioxide 21 mmol/L (22-30); Chloride 105 mmol/L (98-107); Glucose 121 mg/dL (74-99); Magnesium 2.2 mg/dL (1.6-2.3); Non-African American GFR(CKD) 42 (>60 ml/min/1.73 sqM); Phosphorus 4.8 mg/dL (2.5-4.5); Potassium 4.1 mmol/L (3.5-5.1); Sodium 135 mmol/L (137-145); Total Bilirubin 0.9 mg/dL (0.2-1.3); Total Protein 7.3 g/dL (6.3-8.2)
[2024-01-11 23:26] LABS: NT-Pro-B-Type Natriuretic Pept 2680 pg/mL
--- NOTE | 2024-01-12 01:36 | CT ---
EXAM: CT Abdomen and Pelvis With Intravenous Contrast CLINICAL HISTORY: ITS.REASON CT Reason: pain TECHNIQUE: Axial computed tomography images of the abdomen and pelvis with intravenous contrast. CTDI is 15.5 mGy and DLP is 619.7 mGy-cm. This CT exam was performed using one or more of the following dose reduction techniques: automated exposure control, adjustment of the mA and/or kV according to patient size, and/or use of iterative reconstruction technique. COMPARISON: No relevant prior studies available. FINDINGS: Lung bases: Unremarkable. No mass. No consolidation. ABDOMEN: Liver: Unremarkable. No mass. Gallbladder and bile ducts: Unremarkable. No calcified stones. No ductal dilation. Pancreas: Unremarkable. No mass. No ductal dilation. Spleen: Unremarkable. No splenomegaly. Adrenals: Unremarkable. No mass. Kidneys and ureters: Bilateral renal cysts. No hydronephrosis. Stomach and bowel: Wall thickening of small bowel and colon, consistent with mild enterocolitis. Diverticulosis, without acute diverticulitis. No small bowel obstruction. No free intraperitoneal air. PELVIS: Appendix: Postsurgical changes in the right lower quadrant/pelvis, correlate for appendectomy or hernia repair. Bladder: Unremarkable. No mass. Reproductive: Unremarkable as visualized. ABDOMEN and PELVIS: Intraperitoneal space: Unremarkable. No free air. No significant fluid collection. Bones/joints: Degenerative changes of the spine. No acute fracture. No dislocation. Soft tissues: See above. Vasculature: Atherosclerotic changes of the aorta. No abdominal aortic aneurysm. Lymph nodes: Unremarkable. No enlarged lymph nodes. IMPRESSION: 1. Wall thickening of small bowel and colon, consistent with mild enterocolitis. 2. Postsurgical changes in the right lower quadrant/pelvis, correlate for appendectomy or hernia repair.
--- NOTE | 2024-01-12 02:36 | CT ---
EXAM: CT Angiography Chest With Intravenous Contrast CLINICAL HISTORY: ITS.REASON CT Reason: pain TECHNIQUE: Axial computed tomographic angiography images of the chest with intravenous contrast. CTDI is 41.4 mGy and DLP is 308.8 mGy-cm. This CT exam was performed using one or more of the following dose reduction techniques: automated exposure control, adjustment of the mA and/or kV according to patient size, and/or use of iterative reconstruction technique. MIP reconstructed images were created and reviewed. COMPARISON: None FINDINGS: Pulmonary arteries: Enlarged: 35 mm in diameter. No pulmonary embolism. Aorta: No acute findings. An ectatic ascending aorta: 3.9 cm in diameter. Atherosclerotic tortuosity. Lungs: Central airways are patent. Bilateral bronchial wall thickening/mild dilatation. Mild/moderate emphysema. Posteriorly in lower lobes subpleural small linear atelectatic changes.. A small 5.5 mm round solid nodule posteriorly in the right lower lobe (series 406 image 84). No mass. No consolidation. Pleural space: Unremarkable. No significant effusion. No pneumothorax. Heart: Borderline/mild cardiomegaly. No significant pericardial effusion. No evidence of RV dysfunction. Bones/joints: No acute fracture. No dislocation. Increased thoracic kyphosis. Degenerative thoracolumbar spondylosis. Soft tissues: Unremarkable. Lymph nodes: Unremarkable. No enlarged lymph nodes. Other findings: . Diffuse hepatic steatosis. Bilateral renal cysts. Apparent wall thickening of the stomach and visualized bowel. IMPRESSION: No evidence of pulmonary embolism or aortic dissection. A small 5.5 mm solid pulmonary nodule is seen posteriorly in the right lower lobe, probably normal. Consider follow-up with CT chest in 6-12 months. Pulmonary emphysema Apparently increased wall thickening of the stomach and visualized bowel concerning for gastritis/enteritis. Clinical correlation advised .
[2024-01-12 02:44] VITALS: BP 126/87; PULSE 98
== END 2024-01-12 02:53 | disposition home or self-care (01) ==
LOC: EC 20:28
DX: K52.9 Noninfective gastroenteritis and colitis, unspecified (principal)
CPT/HCPCS: 36415; 93005; 83880; 80053; 83605; 83735; 84100; 84484; 85025; 85610; 85730; 71275; 74177; 99285; 96374; 96361 ×5; J2405; Q9967